=== PATIENT | female | born 1995 | race Caucasian/White ===

== ENCOUNTER 2018-01-26 21:32 | Emergency (ER) | payer OTHER ==
[~2018-01-26] VITALS: Ht 157.5 cm; Wt 70.8 kg
[2018-01-26 21:34] VITALS: BP 116/68; Ht 157.5 cm; Wt 70.8 kg
== END 2018-01-26 23:00 | disposition left against medical advice (07) ==
LOC: ED 21:32
DX: L30.8 Other specified dermatitis (principal)